=== PATIENT | female | born 1990 | race Hispanic/Latino ===

== ENCOUNTER 2017-02-20 19:51 | Emergency (ER) | payer MEDICAID, OTHER ==
[~2017-02-20 19:51] MED LIST: PREN-154 PO
== END 2017-02-20 21:18 | disposition home or self-care (01) ==
LOC: EDH 19:51
DX: S16.1XXA Strain of muscle, fascia and tendon at neck level, initial encounter (principal); V49.69XA Unspecified car occupant injured in collision with other motor vehicles in traffic accident, initial encounter; Y93.89 Activity, other specified; Y92.89 Other specified places as the place of occurrence of the external cause; Y99.8 Other external cause status
CPT/HCPCS: 99281

== ENCOUNTER 2022-09-05 12:19 | Emergency (ER) | payer BC ==
[~2022-09-05] VITALS: Ht 149.9 cm; Wt 68.0 kg
[2022-09-05 12:25] VITALS: BP 118/78; PULSE 80; RESP 16
[2022-09-05 12:52] LABS: BASOPHILS % (AUTO) 0.7 % (0.0-5.0); EOSINOPHILS % (AUTO) 0.9 % (0.0-8.0); HEMATOCRIT 39.5 % (36-48); LYMPHOCYTES % (AUTO) 18.2 % (21.0-51.0); MEAN CORPUSCULAR HEMOGLOBIN 27.7 pg (27.0-33.0); MEAN CORPUSCULAR HGB CONC 32.4 g/dL (32.0-36.0); MEAN CORPUSCULAR VOLUME 85.5 fL (79-99); MONOCYTES % (AUTO) 7.2 % (3.0-13.0); NEUTROPHILS % (AUTO) 72.7 % (40.0-77.0); PLATELET COUNT (AUTO) 317 K/uL (130-400); RED BLOOD CELL COUNT(AUTO) 4.62 MIL/uL (4.00-5.50); RED CELL DISTRIBUTION WIDTH 13.3 % (11.0-15.5); WHITE BLOOD COUNT (AUTO) 10.6 K/uL (4.8-10.8)
[2022-09-05 13:00] LABS: APPEARANCE,URINE CLOUDY (CLEAR); BILIRUBIN,URINE NEGATIVE (NEGATIVE); COLOR,URINE YELLOW (YELLOW); GLUCOSE, URINE (UA) NEGATIVE (NEGATIVE); KETONES,URINE NEGATIVE (NEGATIVE); LEUKOCYTE ESTERASE ,URINE 75 Leu/uL (NEGATIVE); NITRATE,URINE NEGATIVE (NEGATIVE); OCCULT BLOOD,URINE NEGATIVE (NEGATIVE); PH,URINE 6.5 (5.0-8.0); PROTEIN,URINE 10 mg/dL (NEGATIVE); UROBILINOGEN,URINE 0.2 mg/dL (0.2-1.0)
[2022-09-05 13:02] LABS: CREATININE 0.8 mg/dL (0.5-1.5); POTASSIUM 4.4 mmol/L (3.5-5.1)
[2022-09-05 13:29] LABS: BACTERIA,URINE FEW /HPF (None Seen); MUCUS,URINE RARE LPF (None Seen); SQUAMOUS EPITHELIAL CELL,UR MOD /HPF (0-2)
[2022-09-05 13:30] LABS: ALBUMIN 3.2 g/dL (3.5-5.0); TOTAL PROTEIN, SERUM 7.8 g/dL (6.0-8.3)
[2022-09-05] MEDS ORDERED: 0.9%NACL 1000ML 1,000 ML IV ONE (13:30)
[2022-09-05] MEDS ORDERED: CEFTRIAXONE 1G VIAL IVPB ONE (13:30)
[2022-09-05] MEDS ORDERED: ACETAMINOPHEN 325 MG TAB PO ONE (13:30)
[2022-09-05] MEDS ORDERED: ONDANSETRON 4MG INJ IVP ONE (13:30)
[2022-09-05] MEDS ORDERED: MACR100 PO (14:29)
== END 2022-09-05 16:40 | disposition home or self-care (01) ==
LOC: EDH 12:19
DX: O23.41 Unspecified infection of urinary tract in pregnancy, first trimester (principal); N39.0 Urinary tract infection, site not specified; Z3A.08 8 weeks gestation of pregnancy
CPT/HCPCS: 99284; 96365; 76801; 96375; 80053; 84702; 85025; 87088; 81001; 36415; J7030; J0696; J2405

== ENCOUNTER 2023-01-18 01:05 | Emergency (ER) | payer BC, MEDICAID ==
[~2023-01-18] VITALS: Ht 149.9 cm; Wt 68.5 kg
[~2023-01-18 01:05] MED LIST changes: +MACR100 PO
[2023-01-18 01:54] VITALS: BP 110/68; PULSE 65; RESP 16; O2SAT 95
[2023-01-18 01:54] LABS: RAPID GROUP A STREP negative (NEGATIVE)
[2023-01-18 02:01] LABS: SARS-CoV-2, RNA, NAAT NEGATIVE SARS CoV-2 (NEGATIVE)
[2023-01-18 02:05] LABS: INFLUENZA TYPE A Negative For Type A (NEGATIVE); INFLUENZA TYPE B Negative For Type B (NEGATIVE)
[2023-01-18] MEDS ORDERED: PRED20TA3 PO (02:15)
[2023-01-18] MEDS ORDERED: ALBU90AE2 IH (02:15)
[2023-01-18] MEDS ORDERED: IBUP-1493 PO (02:15)
[2023-01-18] MEDS ORDERED: ONDA-104 PO (02:21)
== END 2023-01-18 02:27 | disposition home or self-care (01) ==
LOC: EDH 01:05
DX: O26.892 Other specified pregnancy related conditions, second trimester (principal); B34.9 Viral infection, unspecified; Z3A.27 27 weeks gestation of pregnancy; Z20.822 Contact with and (suspected) exposure to COVID-19
CPT/HCPCS: 99283; 87635; 87880; 87804 ×2; C9803